=== PATIENT | male | born 1975 | race Caucasian/White ===

== ENCOUNTER 2016-03-02 12:14 | Inpatient (IN) | payer OTHER ==
[2016-03-02 12:47] VITALS: BMI 22.4
--- NOTE | 2016-03-02 12:58 | HP ---
CIWA Score - CIWA Score Nausea/Vomitin-Mild Nausea/No Vomiting Muscle Tremors: 4-Moderate,w/Arms Extend Anxiety: 4-Mod. Anxious/Guarded Agitation: 1-Slight > Activity Paroxysmal Sweats: 1-Minimal Palms Moist Orientation: 2-Disoriented Date<2 days Tacttile Disturbances: 1-Very Mild Itch/Numbness Auditory Disturbances: 2-Mild Harshness/Frighten Visual Disturbances: 2-Mild Sensitivity Headache: 2-Mild CIWA-Ar Total Score: 20 Admission ROS S - HPI Chief Complaint: I drink until I pass out, I drink and drink. I can't stop - I want to stop Allergies/Adverse Reactions: Allergies Allergy/AdvReac Type Severity Reaction Status Date / Time No Known Allergies Allergy Verified 03/02/16 12:52 History of Present Illness: 40 yo gentleman here for detox from alcohol. History of black outs, no seizures. Was in [facility] detox about a year ago, then relapsed in a few weeks. Reports oxycodone abuse occasionally, when has money, did not show in urine tox. Reports buying xanax on street when has the money, did not show in urine tox, uses cocaine when others share with him. Exam Limitations: Clinical Condition - Ebola screening Have you traveled outside of the country in the last 21 days: No Have you had contact with anyone from an Ebola affected area: No Have you been sick,other than usual withdrawal symptoms: No Do you have a fever: No - Review of Systems Constitutional: Loss of Appetite, Night Sweats, Changes in sleep EENT: reports: No Symptoms Reported Respiratory: reports: No Symptoms reported Cardiac: reports: No Symptoms Reported GI: reports: Nausea, Poor Appetite : reports: Frequency Musculoskeletal: reports: No Symptoms Reported Integumentary: reports: No Symptoms Reported Neuro: reports: Headache Endocrine: reports: No Symptoms Reported Hematology: reports: No Symptoms Reported Psychiatric: reports: Judgement Intact, Anxious Other Systems: Reviewed and Negative Patient History - Patient Medical History Hx Anemia: No Hx Asthma: No Hx Chronic Obstructive Pulmonary Disease (COPD): No Hx Cancer: No Hx Cardiac Disorders: No Hx Congestive Heart Failure: No Hx Hypertension: No Hx Hypercholesterolemia: No Hx Pacemaker: No HX Cerebrovascular Accident: No Hx Seizures: No Hx Dementia: No Hx Diabetes: No Hx Gastrointestinal Disorders: No Hx Liver Disease: No Hx Genitourinary Disorders: No Hx Sexually Transmitted Disorders: No Hx Renal Disease (ESRD): No Hx Thyroid Disease: No Hx Human Immunodeficiency Virus (HIV): No Hx Hepatitis C: No Hx Depression: No Hx Suicide Attempt: Yes (2010 - hospitalized) Hx Bipolar Disorder: No Hx Schizophrenia: Yes (hears voices - last hospitalized 2013, on meds) - Patient Surgical History Past Surgical History: No - PPD History Previous Implant?: Yes Documented Results: Positive w/o proof Implanted On Prior R Admission?: No PPD to be Administered?: No - Reproductive History Patient is a Female of Child Bearing Age (11 -55 yrs old): No (male) Patient : No - Smoking Cessation Smoking history: Current every day smoker Have you smoked in the past 12 months: Yes Aproximately how many cigarettes per day: 4 Hx Chewing Tobacco Use: No Initiated information on smoking cessation: Yes 'Breaking Loose' booklet given: 03/02/16 (given on admission to floor) - Substance & Tx. History Hx Alcohol Use: Yes Hx Substance Use: Yes Substance Use Type: Alcohol, Cocaine, Opiates, Tranquilizers Hx Substance Use Treatment: Yes (detox) - Substances Abused Alcohol Route: Oral Frequency: Daily Amount used: one case beer; 1 pint liquor Age of first use: 13 Date of Last Use: 03/01/16 Cocaine Route: Inhalation Frequency: 1-2 times per week Amount used: $100 Age of first use: 14 Date of Last Use: 03/01/16 Alprazolam (Xanax) Route: Oral Frequency: 1-3 times last 30 days Amount used: two sticks Age of first use: 30 Date of Last Use: 02/24/16 oxycodone Route: Oral Frequency: 1-2 times per week Amount used: 30mg Age of first use: 39 Date of Last Use: 02/29/16 Family Disease History - Family Disease History Family Disease History: Diabetes: Sister, Other: Father ( - surgical sepsis - etoh), Mother ( - renal) Admission Physical Exam BHS - Vital Signs Vital Signs: Vital Signs - 24 hr 03/02/16 12:43 Temperature 96.8 F L Pulse Rate 92 H Respiratory 20 Rate Blood Pressure 113/67 - Physical General Appearance: Yes: Nourished, Appropriately Dressed, Mild Distress, Anxious HEENTM: Yes: Hearing grossly Normal, Normal ENT Inspection, Normocephalic, Normal Voice, Pharynx Normal Respiratory: Yes: Normal Breath Sounds, No Respiratory Distress Neck: Yes: No masses,lesions,Nodules, Supple, Trachea in good position Breast: Yes: Breast Exam Deferred Cardiology: Yes: Regular Rhythm, Regular Rate Abdominal: Yes: Soft Genitourinary: Yes: Frequency Back: Yes: Normal Inspection Musculoskeletal: Yes: full range of Motion, Gait Steady Extremities: Yes: Normal Inspection, Normal Range of Motion Neurological: Yes: Alert, Normal Mood/Affect, Normal Response Integumentary: Yes: Normal Color, Dry, Warm, Track Pugh (no redness, no erythema) Lymphatic: Yes: Within Normal Limits - Diagnostic (1) Alcohol dependence with uncomplicated withdrawal Current Visit: Yes Status: Chronic (2) PPD positive, treated Current Visit: Yes Status: Chronic (3) Nicotine dependence Current Visit: Yes Status: Chronic Qualifiers: Nicotine product type: cigarettes Substance use status: uncomplicated Qualified Code(s): F17.210 - Nicotine dependence, cigarettes, uncomplicated (4) Cocaine abuse Current Visit: Yes Status: Chronic Comment: 'I use when my rich friends give me some' Cleared for Admission [facility] - Detox or Rehab [facility] Level of Care: Medically Managed Detox Regimen/Protocol: Librium S Breath Alcohol Content Breath Alcohol Content: 0 Urine Drug Screen - Results Drug Screen Negative: No Urine Drug Screen Results: ALLY-Cocaine
[2016-03-02] MEDS ORDERED: diphenhydrAMINE HCL 50 MG CAPSULE PO PRN (13:14)
[2016-03-02] MEDS ORDERED: ACETAMINOPHEN 325 MG TABLET (FP) PO PRN (13:14)
[2016-03-02] MEDS ORDERED: LOPERAMIDE HCL 2 MG CAPSULE PO PRN (13:14)
[2016-03-02] MEDS ORDERED: chlordiazePOXIDE HCL 25 MG CAPSULE PO ONE ×2 (13:14→15:45)
[2016-03-02] MEDS ORDERED: IBUPROFEN 400 MG TABLET (FP) PO PRN (13:14)
[2016-03-02] MEDS ORDERED: MAG HYDROX/AL HYDROX/SIMETH 30 ML UNIT-DOSE CUP PO PRN (13:14)
[2016-03-02] MEDS ORDERED: chlordiazePOXIDE HCL 25 MG CAPSULE PO PRN (13:14)
[2016-03-02] MEDS ORDERED: hydrOXYzine PAMOATE 50 MG CAPSULE (FP) PO PRN (13:14)
[2016-03-02] MEDS ORDERED: P-EPHED 60MG/TRIPROLIDI 2.5MG TABLET PO PRN (13:14)
[2016-03-02] MEDS ORDERED: MENTHOL/PHENOL 1 EACH UD MM PRN (13:14)
[2016-03-02] MEDS ORDERED: MAGNESIUM CITRATE 300 ML BOTTLE PO PRN (13:14)
[2016-03-02] MEDS ORDERED: MAGNESIUM HYDROX 2400MG/30ML ORAL SUSPENSION 30 ML CUP PO PRN (13:14)
[2016-03-02] MEDS ORDERED: guaiFENesin/D-METHORPHAN HB 10 ML UNIT-DOSE CUPS PO PRN (13:14)
--- NOTE | 2016-03-02 15:51 | CONSULT ---
[facility] Psychiatric Consult - Data Date of interview: 03/02/16 Admission source: [facility] Identifying data: First admision to [facility] for this 40 y/o male seeking detox treatment on for alcohol,cocaine and opioid dependence.Patient is single without children,domiciled,unemployed and supported on Welfare. Substance Abuse History: - Smoking Cessation. Smoking history: Current every day smoker. Have you smoked in the past 12 months: Yes. Aproximately how many cigarettes per day: 4. Hx Chewing Tobacco Use: No. Initiated information on smoking cessation: Yes. 'Breaking Loose' booklet given: 03/02/16 (given on admission to floor). - Substance & Tx. History. Hx Alcohol Use: Yes. Hx Substance Use: Yes. Substance Use Type: Alcohol, Cocaine, Opiates, Tranquilizers. Hx Substance Use Treatment: Yes (detox). - Substances Abused. Alcohol. Route: Oral. Frequency: Daily. Amount used: one case beer; 1 pint liquor. Age of first use: 13. Date of Last Use: 03/01/16. Cocaine. Route: Inhalation. Frequency: 1-2 times per week. Amount used: $100. Age of first use: 14. Date of Last Use: 03/01/16. Alprazolam (Xanax). Route: Oral. Frequency: 1-3 times last 30 days. Amount used: two sticks. Age of first use: 30. Date of Last Use: 02/24/16. oxycodone. Route: Oral. Frequency: 1-2 times per week. Amount used: 30mg. Age of first use: 39. Date of Last Use: 02/29/16. Patient confirmed. Medical History: Patient endorses good general health. Psychiatric History: Patient reports a history of psychiatric hospitalizations ( vague about details).He states that he got treated with risperdal 3 mg/day + remeron 30 mg/hs during his recent incarceration (released on 12/04/15) .Diagnosed with Schizoaffective Disorder.No affiliation with any [facility]PD care provider.Mr Hanley,however,indicates that he last took his dose of risperdal two days ago.No reported history of suicide attempts. Physical/Sexual Abuse/Trauma History: Patient denies. Additional Comment: Urine Drug Screen Results: ALLY-Cocaine.Noted. Mental Status Exam - Mental Status Exam Alert and Oriented to: Time, Place, Person Cognitive Function: Good Patient Appearance: Well Groomed Mood: Anxious, Apprehensive, Hopeful Affect: Mood Congruent Patient Behavior: Fatigued, Guarded, Appropriate, Cooperative Speech Pattern: Clear, Appropriate Voice Loudness: Normal Thought Process: Goal Oriented Thought Disorder: Not Present Hallucinations: Denies Suicidal Ideation: Denies Homicidal Ideation: Denies Insight/Judgement: Poor Sleep: Fair Appetite: Good Muscle strength/Tone: Normal Gait/Station: Normal Psychiatric Findings - Problem List ([place] 1, 2,3) (1) Alcohol dependence with uncomplicated withdrawal Current Visit: Yes Status: Acute (2) Nicotine dependence Current Visit: Yes Status: Chronic Qualifiers: Nicotine product type: cigarettes Substance use status: uncomplicated Qualified Code(s): F17.210 - Nicotine dependence, cigarettes, uncomplicated (3) Cocaine dependence Current Visit: Yes Status: Acute (4) Schizoaffective disorder Current Visit: Yes Status: Acute - Initial Treatment Plan Initial Treatment Plan: Psychoeducation.Detoxification.Risperdal 3 mg po hs.Side effects/benefits discussed with patient.Made aware of risk of sexual impotence,galactorrhea,gynecomastia,abnormal involuntary movements (dyskinesias, akinesia,akathisia) and neuroleptic malignant syndrome.Remeron 15 mg po hs ( discussed with patient as well).Patient agrees with this careplan.Observation.
[2016-03-02] MEDS: chlordiazePOXIDE HCL 25 MG CAPSULE PO SCH ×2 (18:24→23:02)
[2016-03-02 19:28] LABS: URINE APPEARANCE CLEAR; URINE BILIRUBIN NEGATIVE (NEGATIVE); URINE BLOOD NEGATIVE (NEGATIVE); URINE COLOR YELLOW; URINE GLUCOSE (UA) NEGATIVE (NEGATIVE); URINE KETONE TRACE (NEGATIVE); URINE LEUK ESTERASE NEGATIVE (NEGATIVE); URINE NITRITE NEGATIVE (NEGATIVE); URINE PROTEIN NEGATIVE (NEGATIVE); URINE UROBILINOGEN 4.0 E.U/dl E.U./dl (0.2-1.0)
[2016-03-02] MEDS: THIAMINE HCL 100 MG TABLET (FP) PO SCH (23:03)
[2016-03-02] MEDS: MIRTAZAPINE 15 MG TABLET (FP) PO SCH (23:03)
[2016-03-02] MEDS: risperiDONE 2 MG TABLET PO SCH (23:03)
[2016-03-03] MEDS: chlordiazePOXIDE HCL 25 MG CAPSULE PO SCH ×4 (05:24→23:44)
[2016-03-03] MEDS ORDERED: MIRTAZAPINE 15 MG TABLET (FP) PO SCH (10:00)
[2016-03-03] MEDS: risperiDONE 1 MG TABLET (FP) PO SCH (10:09)
[2016-03-03] MEDS: PRENATAL VITAMINS W/ FOLIC ACID TABLET (FP) PO SCH (10:09)
[2016-03-03 10:24] LABS: MCH 30.9 pg (25.7-33.7); MEAN CELL VOLUME 93.7 fl (80-96); PLATELET COUNT 235 K/MM3 (134-434); RDW 13.9 % (11.9-15.9); WHITE BLOOD COUNT 8.9 K/mm3 (4.0-10.0)
[2016-03-03 10:43] LABS: ALBUMIN 3.3 g/dl (3.4-5.0); ANION GAP 7 (8-16); CALCIUM 8.6 mg/dL (8.5-10.1); CO2 30 mmol/L (21-32); GLUCOSE,RANDOM 66 mg/dL (74-106); SGOT/AST 13 U/L (15-37); SGPT/ALT 19 U/L (12-78)
[2016-03-03 10:45] LABS: ALK PHOS 68 U/L (45-117); BILIRUBIN,TOTAL 0.3 mg/dL (0.2-1.0); TOT PROT 5.6 g/dl (6.4-8.2)
--- NOTE | 2016-03-03 11:41 | PN ---
S CIWA - CIWA Score Nausea/Vomitin Muscle Tremors: 3 Anxiety: 3 Agitation: 2 Paroxysmal Sweats: 2 Orientation: 0-Oriented Tacttile Disturbances: 1-Very Mild Itch/Numbness Auditory Disturbances: 1-Very Mild Visual Disturbances: 1-Very Mild Sensitivity Headache: 2-Mild CIWA-Ar Total Score: 18 BHS Progress Note (SOAP) Subjective: ALERT,IRRITABLE,ANXIOUS,INTERRUPTED SLEEP,TREMOR,PAIN IN THE BODY Objective: 03/03/16 11:40 Vital Signs Temperature 97.9 F 03/03/16 10:17 Pulse Rate 91 H 03/03/16 10:17 Respiratory Rate 18 03/03/16 10:17 Blood Pressure 119/76 03/03/16 10:17 O2 Sat by Pulse Oximetry (%) EKG NSR 03/03/16 11:40 Laboratory Last Values WBC 8.9 K/mm3 (4.0-10.0) 03/03/16 08:00 RBC 4.86 M/mm3 (4.00-5.60) 03/03/16 08:00 Hgb 15.0 GM/dL (11.7-16.9) 03/03/16 08:00 Hct 45.5 % (35.4-49) 03/03/16 08:00 MCV 93.7 fl (80-96) 03/03/16 08:00 MCHC 33.0 g/dl (32.0-35.9) 03/03/16 08:00 RDW 13.9 % (11.9-15.9) 03/03/16 08:00 Plt Count 235 K/MM3 (134-434) 03/03/16 08:00 MPV 9.0 fl (7.5-11.1) 03/03/16 08:00 Sodium 141 mmol/L (136-145) 03/03/16 08:00 Potassium 4.0 mmol/L (3.5-5.1) 03/03/16 08:00 Chloride 104 mmol/L (98-107) 03/03/16 08:00 Carbon Dioxide 30 mmol/L (21-32) 03/03/16 08:00 Anion Gap 7 (8-16) L 03/03/16 08:00 BUN 10 mg/dL (7-18) 03/03/16 08:00 Creatinine 1.0 mg/dL (0.7-1.3) 03/03/16 08:00 Creat Clearance w eGFR > 60 (>60) 03/03/16 08:00 Random Glucose 66 mg/dL (74-106) L 03/03/16 08:00 Calcium 8.6 mg/dL (8.5-10.1) 03/03/16 08:00 Total Bilirubin 0.3 mg/dL (0.2-1.0) 03/03/16 08:00 AST 13 U/L (15-37) L 03/03/16 08:00 ALT 19 U/L (12-78) 03/03/16 08:00 Alkaline Phosphatase 68 U/L (45-117) 03/03/16 08:00 Total Protein 5.6 g/dl (6.4-8.2) L 03/03/16 08:00 Albumin 3.3 g/dl (3.4-5.0) L 03/03/16 08:00 Urine Color Yellow 03/02/16 Unknown Urine Appearance Clear 03/02/16 Unknown Urine pH 6.0 (5.0-8.0) 03/02/16 Unknown Ur Specific [place] 1.015 (1.001-1.035) 03/02/16 Unknown Urine Protein Negative (NEGATIVE) 03/02/16 Unknown Urine Glucose (UA) Negative (NEGATIVE) 03/02/16 Unknown Urine Ketones Trace (NEGATIVE) H 03/02/16 Unknown Urine Blood Negative (NEGATIVE) 03/02/16 Unknown Urine Nitrite Negative (NEGATIVE) 03/02/16 Unknown Urine Bilirubin Negative (NEGATIVE) 03/02/16 Unknown Urine Urobilinogen 4.0 e.u/dl E.U./dl (0.2-1.0) 03/02/16 Unknown Ur Leukocyte Esterase Negative (NEGATIVE) 03/02/16 Unknown LABS PENDING Assessment: 03/03/16 11:41 WITHDRAWAL SYMPTOM Plan: CONTINUE DETOX
[2016-03-03 11:47] LABS: HIV 1 & 2 AB NEGATIVE; HIV 1 AGp24 NEGATIVE
[2016-03-03] MEDS: THIAMINE HCL 100 MG TABLET (FP) PO SCH (22:41)
[2016-03-03] MEDS: MIRTAZAPINE 15 MG TABLET (FP) PO SCH (22:41)
[2016-03-03] MEDS: risperiDONE 2 MG TABLET PO SCH (22:41)
[2016-03-04] MEDS: chlordiazePOXIDE HCL 25 MG CAPSULE PO SCH ×2 (05:37→10:15)
[2016-03-04] MEDS: risperiDONE 1 MG TABLET (FP) PO SCH (10:15)
[2016-03-04] MEDS: PRENATAL VITAMINS W/ FOLIC ACID TABLET (FP) PO SCH (10:15)
[2016-03-04] MEDS: NICOTINE POLACRILEX 2 MG GUM BUC PRN (10:43)
--- NOTE | 2016-03-04 11:48 | PN ---
S CIWA - CIWA Score Nausea/Vomitin Muscle Tremors: 2 Anxiety: 3 Agitation: 3 Paroxysmal Sweats: 3 Orientation: 0-Oriented Tacttile Disturbances: 2-Mild Itch/Numbness/Burn Auditory Disturbances: 0-None Visual Disturbances: 0-None Headache: 0-None Present CIWA-Ar Total Score: 16 BHS Progress Note (SOAP) Subjective: interrupted sleep, sweats, nausea Objective: 03/04/16 11:46 Vital Signs Temperature 98.4 F 03/04/16 10:18 Pulse Rate 113 H 03/04/16 10:18 Respiratory Rate 18 03/04/16 10:18 Blood Pressure 148/75 03/04/16 10:18 O2 Sat by Pulse Oximetry (%) Laboratory Tests 03/02/16 03/03/16 03/03/16 Unknown 08:00 08:00 WBC 8.9 RBC 4.86 Hgb 15.0 Hct 45.5 MCV 93.7 MCHC 33.0 RDW 13.9 Plt Count 235 MPV 9.0 Sodium 141 Potassium 4.0 Chloride 104 Carbon Dioxide 30 Anion Gap 7 L BUN 10 Creatinine 1.0 Creat Clearance w eGFR > 60 Random Glucose 66 L Calcium 8.6 Total Bilirubin 0.3 AST 13 L ALT 19 Alkaline Phosphatase 68 Total Protein 5.6 L Albumin 3.3 L Urine Color Yellow Urine Appearance Clear Urine pH 6.0 Ur Specific [place] 1.015 Urine Protein Negative Urine Glucose (UA) Negative Urine Ketones Trace H Urine Blood Negative Urine Nitrite Negative Urine Bilirubin Negative Urine Urobilinogen 4.0 e.u/dl Ur Leukocyte Esterase Negative RPR Titer HIV 1&2 Antibody Screen HIV P24 Antigen 03/03/16 03/03/16 09:10 09:10 WBC RBC Hgb Hct MCV MCHC RDW Plt Count MPV Sodium Potassium Chloride Carbon Dioxide Anion Gap BUN Creatinine Creat Clearance w eGFR Random Glucose Calcium Total Bilirubin AST ALT Alkaline Phosphatase Total Protein Albumin Urine Color Urine Appearance Urine pH Ur Specific [place] Urine Protein Urine Glucose (UA) Urine Ketones Urine Blood Urine Nitrite Urine Bilirubin Urine Urobilinogen Ur Leukocyte Esterase RPR Titer Nonreactive HIV 1&2 Antibody Screen Negative HIV P24 Antigen Negative pt aox3 in nad ambulatng Assessment: 03/04/16 11:47 withdrawl sx's Plan: cont. detox increase fluids ensure bid
[2016-03-04] MEDS: chlordiazePOXIDE 5 MG CAPSULE PO SCH ×2 (18:02→22:11)
[2016-03-04] MEDS: risperiDONE 2 MG TABLET PO SCH (22:11)
[2016-03-04] MEDS: THIAMINE HCL 100 MG TABLET (FP) PO SCH (22:11)
[2016-03-04] MEDS: MIRTAZAPINE 15 MG TABLET (FP) PO SCH (22:11)
[2016-03-05] MEDS: chlordiazePOXIDE 5 MG CAPSULE PO SCH ×2 (06:48→10:13)
[2016-03-05] MEDS: NICOTINE POLACRILEX 2 MG GUM BUC PRN (09:02)
[2016-03-05] MEDS: PRENATAL VITAMINS W/ FOLIC ACID TABLET (FP) PO SCH (10:12)
[2016-03-05] MEDS: risperiDONE 1 MG TABLET (FP) PO SCH (10:13)
--- NOTE | 2016-03-05 13:01 | PN ---
BHS Progress Note (SOAP) Subjective: interrupted sleep but better Objective: 03/05/16 13:00 Vital Signs Temperature 97.5 F L 03/05/16 09:33 Pulse Rate 112 H 03/05/16 09:33 Respiratory Rate 18 03/05/16 09:33 Blood Pressure 110/79 03/05/16 09:33 O2 Sat by Pulse Oximetry (%) Laboratory Tests 03/02/16 03/03/16 03/03/16 Unknown 08:00 08:00 WBC 8.9 RBC 4.86 Hgb 15.0 Hct 45.5 MCV 93.7 MCHC 33.0 RDW 13.9 Plt Count 235 MPV 9.0 Sodium 141 Potassium 4.0 Chloride 104 Carbon Dioxide 30 Anion Gap 7 L BUN 10 Creatinine 1.0 Creat Clearance w eGFR > 60 Random Glucose 66 L Calcium 8.6 Total Bilirubin 0.3 AST 13 L ALT 19 Alkaline Phosphatase 68 Total Protein 5.6 L Albumin 3.3 L Urine Color Yellow Urine Appearance Clear Urine pH 6.0 Ur Specific [place] 1.015 Urine Protein Negative Urine Glucose (UA) Negative Urine Ketones Trace H Urine Blood Negative Urine Nitrite Negative Urine Bilirubin Negative Urine Urobilinogen 4.0 e.u/dl Ur Leukocyte Esterase Negative RPR Titer HIV 1&2 Antibody Screen HIV P24 Antigen 03/03/16 03/03/16 09:10 09:10 WBC RBC Hgb Hct MCV MCHC RDW Plt Count MPV Sodium Potassium Chloride Carbon Dioxide Anion Gap BUN Creatinine Creat Clearance w eGFR Random Glucose Calcium Total Bilirubin AST ALT Alkaline Phosphatase Total Protein Albumin Urine Color Urine Appearance Urine pH Ur Specific [place] Urine Protein Urine Glucose (UA) Urine Ketones Urine Blood Urine Nitrite Urine Bilirubin Urine Urobilinogen Ur Leukocyte Esterase RPR Titer Nonreactive HIV 1&2 Antibody Screen Negative HIV P24 Antigen Negative Laboratory Tests 03/02/16 03/03/16 03/03/16 Unknown 08:00 08:00 WBC 8.9 RBC 4.86 Hgb 15.0 Hct 45.5 MCV 93.7 MCHC 33.0 RDW 13.9 Plt Count 235 MPV 9.0 Sodium 141 Potassium 4.0 Chloride 104 Carbon Dioxide 30 Anion Gap 7 L BUN 10 Creatinine 1.0 Creat Clearance w eGFR > 60 Random Glucose 66 L Calcium 8.6 Total Bilirubin 0.3 AST 13 L ALT 19 Alkaline Phosphatase 68 Total Protein 5.6 L Albumin 3.3 L Urine Color Yellow Urine Appearance Clear Urine pH 6.0 Ur Specific [place] 1.015 Urine Protein Negative Urine Glucose (UA) Negative Urine Ketones Trace H Urine Blood Negative Urine Nitrite Negative Urine Bilirubin Negative Urine Urobilinogen 4.0 e.u/dl Ur Leukocyte Esterase Negative RPR Titer HIV 1&2 Antibody Screen HIV P24 Antigen 03/03/16 03/03/16 09:10 09:10 WBC RBC Hgb Hct MCV MCHC RDW Plt Count MPV Sodium Potassium Chloride Carbon Dioxide Anion Gap BUN Creatinine Creat Clearance w eGFR Random Glucose Calcium Total Bilirubin AST ALT Alkaline Phosphatase Total Protein Albumin Urine Color Urine Appearance Urine pH Ur Specific [place] Urine Protein Urine Glucose (UA) Urine Ketones Urine Blood Urine Nitrite Urine Bilirubin Urine Urobilinogen Ur Leukocyte Esterase RPR Titer Nonreactive HIV 1&2 Antibody Screen Negative HIV P24 Antigen Negative pt aox3 in nad ambulating Assessment: 03/05/16 13:01 withdrawl sx's Plan: cont. detox increase fluids d/c in am
[2016-03-05] MEDS: chlordiazePOXIDE HCL 10 MG CAPSULE PO SCH ×2 (17:53→22:40)
[2016-03-05] MEDS: risperiDONE 2 MG TABLET PO SCH (22:39)
[2016-03-05] MEDS: THIAMINE HCL 100 MG TABLET (FP) PO SCH (22:39)
[2016-03-05] MEDS: MIRTAZAPINE 15 MG TABLET (FP) PO SCH (22:40)
[2016-03-06] MEDS: chlordiazePOXIDE HCL 10 MG CAPSULE PO SCH (05:50)
--- NOTE | 2016-03-06 08:45 | DS ---
[facility] Detox Discharge Summary Admission Date: 03/02/16 Discharge Date: 03/06/16 - History Present History: Alcohol Dependence, Cocaine Dependence - Physical Exam Results Vital Signs: Vital Signs Temperature 98.4 F 03/06/16 05:50 Pulse Rate 81 03/06/16 05:50 Respiratory Rate 20 03/06/16 05:50 Blood Pressure 113/64 03/06/16 05:50 O2 Sat by Pulse Oximetry (%) - Treatment Hospital Course: Detox Protocol Followed, Detoxed Safely, Responded well, Discharged Condition Good, Rehab Referral Accepted - Medication Discharge Medications: Ambulatory Orders Mirtazapine [Remeron -] 15 mg PO HS #30 tablet 03/02/16 Mirtazapine [Remeron -] 30 mg PO DAILY 03/02/16 Risperidone [Risperdal] 3 mg PO DAILY 03/02/16 Risperidone [Risperdal] 3 mg PO HS #30 tablet 03/02/16 - Diagnosis (1) Alcohol dependence with uncomplicated withdrawal Current Visit: Yes Status: Chronic (2) Cocaine dependence Current Visit: Yes Status: Chronic Qualifiers: Substance use status: uncomplicated Qualified Code(s): F14.20 - Cocaine dependence, uncomplicated (3) Schizoaffective disorder Current Visit: Yes Status: Chronic (4) Cocaine abuse Current Visit: Yes Status: Chronic (5) Nicotine dependence Current Visit: Yes Status: Chronic Qualifiers: Nicotine product type: cigarettes Substance use status: uncomplicated Qualified Code(s): F17.210 - Nicotine dependence, cigarettes, uncomplicated (6) PPD positive, treated Current Visit: Yes Status: Chronic - AMA Did Patient Leave Against Medical Advice: No
[2016-03-06 10:04] VITALS: BP 138/61; PULSE 74; TEMP 98.6
== END 2016-03-06 09:10 | disposition home or self-care (01) | DRG 774 ==
LOC: YASAS 12:14 → Y6N 14:21
PROVIDERS: ADMIT Internal Medicine; ATTEND Internal Medicine
PROC: HZ2ZZZZ Detoxification Services for Substance Abuse Treatment (ICD-10-PCS; principal; 2016-03-02)
DX: F10.230 Alcohol dependence with withdrawal, uncomplicated (principal); F14.10 Cocaine abuse, uncomplicated; F17.210 Nicotine dependence, cigarettes, uncomplicated; F25.9 Schizoaffective disorder, unspecified; R76.11 Nonspecific reaction to tuberculin skin test without active tuberculosis; Z86.69 Personal history of other diseases of the nervous system and sense organs; Z91.5 Personal history of self-harm
CPT/HCPCS: 36415; 71020-TC; 80053; 81003; 85027; 86593; 87389; J2794

== ENCOUNTER 2016-04-13 12:08 | Inpatient (IN) | payer OTHER ==
[2016-04-13 15:16] VITALS: BMI 22.2
--- NOTE | 2016-04-13 15:35 | HP ---
CIWA Score - CIWA Score Nausea/Vomitin Muscle Tremors: 3 Anxiety: 3 Agitation: 3 Paroxysmal Sweats: 2 Orientation: 0-Oriented Tacttile Disturbances: 2-Mild Itch/Numbness/Burn Auditory Disturbances: 2-Mild Harshness/Frighten Visual Disturbances: 2-Mild Sensitivity Headache: 2-Mild CIWA-Ar Total Score: 22 Admission ROS BHS - HPI Chief Complaint: I NEED HELP TO STOP DRINKING ALCOHOL AND COCAINE Allergies/Adverse Reactions: Allergies Allergy/AdvReac Type Severity Reaction Status Date / Time No Known Allergies Allergy Verified 04/13/16 15:09 History of Present Illness: THIS 40YEARS OLD MALE WITH ALCOHOL AND COCAINE DEPENDENCE,WITHDRAWAL SYMPTOM, LAST DETOX 03/02/16 TO 03/06/16 SYNCOPE ALCOHOL RELATED SEVERAL ADMISSIONS IN DETOX LONGEST PERIOD OF SOBRIETY 2 YEARS NICOTINE DEPENDENCE SCHIZOPHRENIA Exam Limitations: No Limitations - Ebola screening Have you traveled outside of the country in the last 21 days: No Have you had contact with anyone from an Ebola affected area: No Have you been sick,other than usual withdrawal symptoms: No Do you have a fever: No - Review of Systems Constitutional: Chills, Diaphoresis, Loss of Appetite, Malaise, Night Sweats, Changes in sleep, Weakness, Unintentional Wgt. Loss EENT: reports: Nose Congestion Respiratory: reports: No Symptoms reported Cardiac: reports: Palpitations GI: reports: Diarrhea, Nausea, Vomiting, Abdominal cramping : reports: No Symptoms Reported Musculoskeletal: reports: Back Pain, Muscle Pain Integumentary: reports: Dryness Neuro: reports: Headache, Tremors Endocrine: reports: No Symptoms Reported Hematology: reports: No Symptoms Reported Psychiatric: reports: other (SCHIZOPHRENIA) Patient History - Patient Medical History Hx Anemia: No Hx Asthma: No Hx Chronic Obstructive Pulmonary Disease (COPD): No Hx Cancer: No Hx Cardiac Disorders: No Hx Congestive Heart Failure: No Hx Hypertension: No Hx Hypercholesterolemia: No Hx Pacemaker: No HX Cerebrovascular Accident: No Hx Seizures: No Hx Dementia: No Hx Diabetes: No Hx Gastrointestinal Disorders: No Hx Liver Disease: No Hx Genitourinary Disorders: No Hx Sexually Transmitted Disorders: No Hx Renal Disease (ESRD): No Hx Thyroid Disease: No Hx Human Immunodeficiency Virus (HIV): No (LAST 12/09 ) Hx Hepatitis C: No Hx Depression: No Hx Suicide Attempt: Yes (ATTEMPT TO HANG HIMSELF) Hx Bipolar Disorder: No Hx Schizophrenia: Yes Other Medical History: NO SUICIDAL,NO HOMICIDAL - Patient Surgical History Past Surgical History: No - PPD History Previous Implant?: Yes Documented Results: Positive w/o proof Implanted On Prior [facility] Admission?: No PPD to be Administered?: No - Smoking Cessation Smoking history: Current every day smoker Have you smoked in the past 12 months: Yes Aproximately how many cigarettes per day: 10 Hx Chewing Tobacco Use: No Initiated information on smoking cessation: Yes 'Breaking Loose' booklet given: 04/13/16 - Substance & Tx. History Hx Alcohol Use: Yes Hx Substance Use: Yes Substance Use Type: Alcohol, Cocaine Hx Substance Use Treatment: Yes ([facility] 03/02/16 TO 03/06/16) - Substances Abused Alcohol Route: Oral Frequency: Daily Amount used: Whiskey(4-pints) Age of first use: 16 Date of Last Use: 04/13/16 Cocaine Route: Inhalation Frequency: Daily Amount used: $500-600 Age of first use: 20 Date of Last Use: 04/13/16 Family Disease History - Family Disease History Family Disease History: Diabetes: Sister, Other: Father ( - surgical sepsis - etoh), Mother ( - renal) Admission Physical Exam S - Vital Signs Vital Signs: Vital Signs - 24 hr 04/13/16 15:14 Temperature 98.7 F Pulse Rate 88 Respiratory 18 Rate Blood Pressure 96/58 - Physical General Appearance: Yes: Moderate Distress, Tremorous, Irritable, Sweating, Anxious HEENTM: Yes: Nasal Congestion Respiratory: Yes: Lungs Clear Neck: Yes: Within Normal Limits Breast: Yes: Within Normal Limits Cardiology: Yes: Within Normal Limits, Regular Rhythm, Regular Rate, S1, S2 Abdominal: Yes: Within Normal Limits, Normal Bowel Sounds, Non Tender, Soft Genitourinary: Yes: Within Normal Limits Back: Yes: Muscle Spasm Musculoskeletal: Yes: Back pain, Muscle Pain Extremities: Yes: Tremors Neurological: Yes: Within Normal Limits, roundhouse firer/fireman II-XII NML intact, Fully Oriented, Alert, Motor Strength 5/5 Integumentary: Yes: Dry Lymphatic: Yes: Within Normal Limits - Diagnostic (1) Alcohol dependence with uncomplicated withdrawal Current Visit: No Status: Chronic (2) Cocaine dependence Current Visit: No Status: Chronic Qualifiers: Substance use status: uncomplicated Qualified Code(s): F14.20 - Cocaine dependence, uncomplicated (3) Nicotine dependence Current Visit: No Status: Chronic Qualifiers: Nicotine product type: cigarettes Substance use status: uncomplicated Qualified Code(s): F17.210 - Nicotine dependence, cigarettes, uncomplicated (4) PPD positive, treated Current Visit: No Status: Chronic (5) Schizoaffective disorder Current Visit: No Status: Chronic (6) Weight loss Current Visit: Yes Status: Acute Cleared for Admission S - Detox or Rehab [facility] Level of Care: Medically Managed Detox Regimen/Protocol: Librium S Breath Alcohol Content Breath Alcohol Content: 0 Urine Drug Screen - Results Drug Screen Negative: Yes Urine Drug Screen Results: ALLY-Cocaine
[2016-04-13] MEDS ORDERED: hydrOXYzine PAMOATE 50 MG CAPSULE (FP) PO PRN (15:41)
[2016-04-13] MEDS ORDERED: chlordiazePOXIDE HCL 25 MG CAPSULE PO PRN (15:41)
[2016-04-13] MEDS ORDERED: LOPERAMIDE HCL 2 MG CAPSULE PO PRN (15:41)
[2016-04-13] MEDS ORDERED: MAG HYDROX/AL HYDROX/SIMETH 30 ML UNIT-DOSE CUP PO PRN (15:41)
[2016-04-13] MEDS ORDERED: chlordiazePOXIDE HCL 25 MG CAPSULE PO ONE (15:41)
[2016-04-13] MEDS ORDERED: MAGNESIUM CITRATE 300 ML BOTTLE PO PRN (15:41)
[2016-04-13] MEDS ORDERED: P-EPHED 60MG/TRIPROLIDI 2.5MG TABLET PO PRN (15:41)
[2016-04-13] MEDS ORDERED: guaiFENesin/D-METHORPHAN HB 10 ML UNIT-DOSE CUPS PO PRN (15:41)
[2016-04-13] MEDS ORDERED: MENTHOL/PHENOL 1 EACH UD MM PRN (15:41)
[2016-04-13] MEDS ORDERED: MAGNESIUM HYDROX 2400MG/30ML ORAL SUSPENSION 30 ML CUP PO PRN (15:41)
[2016-04-13] MEDS ORDERED: ACETAMINOPHEN 325 MG TABLET (FP) PO PRN (15:41)
[2016-04-13] MEDS ORDERED: IBUPROFEN 400 MG TABLET (FP) PO PRN (15:41)
[2016-04-13] MEDS: chlordiazePOXIDE HCL 25 MG CAPSULE PO SCH ×2 (18:36→22:39)
[2016-04-13] MEDS: THIAMINE HCL 100 MG TABLET (FP) PO SCH (22:39)
[2016-04-13] MEDS: diphenhydrAMINE HCL 50 MG CAPSULE PO PRN (22:39)
[2016-04-14] MEDS: chlordiazePOXIDE HCL 25 MG CAPSULE PO SCH ×4 (05:36→22:51)
[2016-04-14] MEDS ORDERED: COLLOIDAL OATMEAL 1 BAR EACH TP PRN (09:16)
[2016-04-14 10:35] LABS: MCH 30.6 pg (25.7-33.7); MCHC 32.8 g/dl (32.0-35.9); MEAN CELL VOLUME 93.2 fl (80-96); MEAN PLT VOLUME 9.1 fl (7.5-11.1); PLATELET COUNT 245 K/MM3 (134-434); RDW 14.2 % (11.9-15.9); WHITE BLOOD COUNT 6.7 K/mm3 (4.0-10.0)
[2016-04-14 10:44] LABS: ALBUMIN 3.7 g/dl (3.4-5.0); ALK PHOS 73 U/L (45-117); ANION GAP 11 (8-16); BILIRUBIN,TOTAL 0.2 mg/dL (0.2-1.0); CALCIUM 8.9 mg/dL (8.5-10.1); CO2 29 mmol/L (21-32); GLUCOSE,RANDOM 85 mg/dL (74-106); SGOT/AST 8 U/L (15-37); SGPT/ALT 18 U/L (12-78); TOT PROT 6.3 g/dl (6.4-8.2)
[2016-04-14] MEDS: PRENATAL VITAMINS W/ FOLIC ACID TABLET (FP) PO SCH (10:48)
[2016-04-14] MEDS: NICOTINE POLACRILEX 2 MG GUM BUC PRN (11:07)
--- NOTE | 2016-04-14 11:55 | PN ---
S CIWA - CIWA Score Nausea/Vomitin-No Nausea/No Vomiting Muscle Tremors: 3 Anxiety: 4-Mod. Anxious/Guarded Agitation: 4-Moderately Restless Paroxysmal Sweats: 3 Orientation: 0-Oriented Tacttile Disturbances: 0-None Auditory Disturbances: 0-None Visual Disturbances: 0-None Headache: 0-None Present CIWA-Ar Total Score: 14 BHS Progress Note (SOAP) Subjective: Anxiety,tremors,sweating,interrupted sleep,restless. Objective: 04/14/16 11:54 Vital Signs - 8 hr 04/14/16 06:32 Temperature 97.6 F Pulse Rate 65 Respiratory 18 Rate Blood Pressure 120/69 Laboratory Tests 04/14/16 04/14/16 07:45 07:45 WBC 6.7 RBC 4.94 Hgb 15.1 Hct 46.1 MCV 93.2 MCHC 32.8 RDW 14.2 Plt Count 245 MPV 9.1 Sodium 143 Potassium 3.8 Chloride 103 Carbon Dioxide 29 Anion Gap 11 BUN 13 D Creatinine 1.0 Creat Clearance w eGFR > 60 Random Glucose 85 D Calcium 8.9 Total Bilirubin 0.2 D AST 8 L D ALT 18 Alkaline Phosphatase 73 Total Protein 6.3 L Albumin 3.7 labs noted Assessment: 04/14/16 11:54 withdrawal sx. Plan: continue detox
[2016-04-14 13:08] LABS: HIV 1 & 2 AB NEGATIVE; HIV 1 AGp24 NEGATIVE
[2016-04-14] MEDS: diphenhydrAMINE HCL 50 MG CAPSULE PO PRN (22:51)
[2016-04-14] MEDS: THIAMINE HCL 100 MG TABLET (FP) PO SCH (22:51)
--- NOTE | 2016-04-15 00:48 | EKG ---
Test Reason : Blood Pressure : / mmHG Vent. Rate : 079 BPM Atrial Rate : 079 BPM P-R Int : 178 ms QRS Dur : 108 ms QT Int : 402 ms P-R-T Axes : 071 103 067 degrees QTc Int : 460 ms NORMAL SINUS RHYTHM INCOMPLETE RIGHT BUNDLE BRANCH BLOCK POSSIBLE LEFT ATRIAL ENLARGEMENT BORDERLINE ECG NO PREVIOUS ECGS AVAILABLE Confirmed by ANTONY GOLDMAN, ELIZABETH ([id number]) on 04/15/2016 12:47:51 AM Referred By: Confirmed By:ELIZABETH HARDY MD
[2016-04-15] MEDS: chlordiazePOXIDE HCL 25 MG CAPSULE PO SCH ×2 (05:12→10:31)
[2016-04-15] MEDS: NICOTINE POLACRILEX 2 MG GUM BUC PRN ×2 (05:40→11:00)
[2016-04-15 10:23] LABS: URINE APPEARANCE CLEAR; URINE BILIRUBIN NEGATIVE (NEGATIVE); URINE BLOOD NEGATIVE (NEGATIVE); URINE COLOR LTYELLOW; URINE GLUCOSE (UA) NEGATIVE (NEGATIVE); URINE KETONE NEGATIVE (NEGATIVE); URINE LEUK ESTERASE NEGATIVE (NEGATIVE); URINE NITRITE NEGATIVE (NEGATIVE); URINE PROTEIN NEGATIVE (NEGATIVE); URINE UROBILINOGEN NEGATIVE E.U./dl (0.2-1.0)
[2016-04-15] MEDS: PRENATAL VITAMINS W/ FOLIC ACID TABLET (FP) PO SCH (10:31)
--- NOTE | 2016-04-15 14:46 | CONSULT ---
[facility] Psychiatric Consult - Data Date of interview: 04/15/16 Admission source: [facility] Identifying data: Mr Hanley is a 40 years old single male, unemployed on public assistance, homeless seeking detox treatment for alcohol and cocaine Substance Abuse History: - Smoking Cessation. Smoking history: Current every day smoker. Have you smoked in the past 12 months: Yes. Aproximately how many cigarettes per day: 10. Hx Chewing Tobacco Use: No. Initiated information on smoking cessation: Yes. 'Breaking Loose' booklet given: 04/13/16. - Substance & Tx. History. Hx Alcohol Use: Yes. Hx Substance Use: Yes. Substance Use Type : Alcohol, Cocaine. Hx Substance Use Treatment: Yes ([facility] 03/02/16 TO 03/06/16) . - Substances Abused. Alcohol. Route: Oral. Frequency: Daily. Amount used: Whiskey(4-pints). Age of first use: 16. Date of Last Use: 04/13/16. Cocaine. Route: Inhalation. Frequency: Daily. Amount used: $500-600. Age of first use: 20. Date of Last Use: 04/13/16 Medical History: Significant for history of prophylactic treatment for TB Psychiatric History: Reports being diagnosed with Schizoaffective Disorder while incarcerated in 2006. Reports 2 previous psychiatric hospitalizations for suicidal attempt(by trying to hang self & by swallowing objects like spoon and soap) while incarcerated. He was prescribed Remeron 30 mg po HS and Risperdal 3 mg po HS. Claims that after his release in Nov 2015, he has been seeing a psychiatrist at [facility] and was continued on Risperdal 3 mg po HS and Remeron 30 mg po Hs. Told physician underwriter that he has not seen the psychiatrist nor taking medications for 2 months. At present, reports hearing voices not command in nature and not feeling suicidal, homicidal Mental Status Exam - Mental Status Exam Alert and Oriented to: Time, Place, Person Cognitive Function: Fair Patient Appearance: Well Groomed Mood: Hopeful, Euthymic Affect: Blunted Patient Behavior: Cooperative Speech Pattern: Clear Voice Loudness: Normal Thought Process: Intact, Goal Oriented Thought Disorder: Not Present Hallucinations: Auditory (hearing voices non command in nature ) Suicidal Ideation: Denies Homicidal Ideation: Denies Insight/Judgement: Poor Sleep: Poorly Appetite: Good Muscle strength/Tone: Normal Gait/Station: Normal Psychiatric Findings - Problem List ([place] 1, 2,3) (1) Schizoaffective disorder Current Visit: No Status: Chronic (2) Alcohol dependence with uncomplicated withdrawal Current Visit: No Status: Chronic (3) Cocaine dependence Current Visit: No Status: Chronic Qualifiers: Substance use status: uncomplicated Qualified Code(s): F14.20 - Cocaine dependence, uncomplicated (4) Nicotine dependence Current Visit: No Status: Chronic Qualifiers: Nicotine product type: cigarettes Substance use status: uncomplicated Qualified Code(s): F17.210 - Nicotine dependence, cigarettes, uncomplicated (5) PPD positive, treated Current Visit: No Status: Chronic - Initial Treatment Plan Initial Treatment Plan: Start Risperdal 1 mg po BID(first dose stat) and Remeron 30 mg po HS
[2016-04-15] MEDS ORDERED: risperiDONE 1 MG TABLET (FP) PO ONE (14:56)
--- NOTE | 2016-04-15 17:17 | PN ---
[facility] CIWA - CIWA Score Nausea/Vomitin-Mild Nausea/No Vomiting Muscle Tremors: 4-Moderate,w/Arms Extend Anxiety: 1-Mildly Anxious Agitation: 1-Slight > Activity Paroxysmal Sweats: 3 Orientation: 0-Oriented Tacttile Disturbances: 2-Mild Itch/Numbness/Burn Auditory Disturbances: 0-None Visual Disturbances: 3-Moderate Sensitivity Headache: 0-None Present CIWA-Ar Total Score: 15 S Progress Note (SOAP) Subjective: Sweating, Tremors, Diarrhea, Body Aches. Objective: PT. A & O X 3, OBSERVED AMBULATING ON UNIT. 04/15/16 17:15 Vital Signs Temperature 96.4 F L 04/15/16 13:03 Pulse Rate 88 04/15/16 13:03 Respiratory Rate 18 04/15/16 13:03 Blood Pressure 121/75 04/15/16 13:03 O2 Sat by Pulse Oximetry (%) Laboratory Last Values WBC 6.7 K/mm3 (4.0-10.0) 04/14/16 07:45 RBC 4.94 M/mm3 (4.00-5.60) 04/14/16 07:45 Hgb 15.1 GM/dL (11.7-16.9) 04/14/16 07:45 Hct 46.1 % (35.4-49) 04/14/16 07:45 MCV 93.2 fl (80-96) 04/14/16 07:45 MCHC 32.8 g/dl (32.0-35.9) 04/14/16 07:45 RDW 14.2 % (11.9-15.9) 04/14/16 07:45 Plt Count 245 K/MM3 (134-434) 04/14/16 07:45 MPV 9.1 fl (7.5-11.1) 04/14/16 07:45 Sodium 143 mmol/L (136-145) 04/14/16 07:45 Potassium 3.8 mmol/L (3.5-5.1) 04/14/16 07:45 Chloride 103 mmol/L (98-107) 04/14/16 07:45 Carbon Dioxide 29 mmol/L (21-32) 04/14/16 07:45 Anion Gap 11 (8-16) 04/14/16 07:45 BUN 13 mg/dL (7-18) D 04/14/16 07:45 Creatinine 1.0 mg/dL (0.7-1.3) 04/14/16 07:45 Creat Clearance w eGFR > 60 (>60) 04/14/16 07:45 Random Glucose 85 mg/dL (74-106) D 04/14/16 07:45 Calcium 8.9 mg/dL (8.5-10.1) 04/14/16 07:45 Total Bilirubin 0.2 mg/dL (0.2-1.0) D 04/14/16 07:45 AST 8 U/L (15-37) L D 04/14/16 07:45 ALT 18 U/L (12-78) 04/14/16 07:45 Alkaline Phosphatase 73 U/L (45-117) 04/14/16 07:45 Total Protein 6.3 g/dl (6.4-8.2) L 04/14/16 07:45 Albumin 3.7 g/dl (3.4-5.0) 04/14/16 07:45 Urine Color Ltyellow 04/15/16 07:00 Urine Appearance Clear 04/15/16 07:00 Urine pH 6.0 (5.0-8.0) 04/15/16 07:00 Ur Specific [place] 1.017 (1.001-1.035) 04/15/16 07:00 Urine Protein Negative (NEGATIVE) 04/15/16 07:00 Urine Glucose (UA) Negative (NEGATIVE) 04/15/16 07:00 Urine Ketones Negative (NEGATIVE) 04/15/16 07:00 Urine Blood Negative (NEGATIVE) 04/15/16 07:00 Urine Nitrite Negative (NEGATIVE) 04/15/16 07:00 Urine Bilirubin Negative (NEGATIVE) 04/15/16 07:00 Urine Urobilinogen Negative E.U./dl (0.2-1.0) 04/15/16 07:00 Ur Leukocyte Esterase Negative (NEGATIVE) 04/15/16 07:00 RPR Titer Nonreactive (NONREACTIVE) 04/14/16 07:45 HIV 1&2 Antibody Screen Negative 04/14/16 07:45 HIV P24 Antigen Negative 04/14/16 07:45 LABS NOTED. Assessment: 04/15/16 17:16 WITHDRAWAL SYMPTOMS. Plan: CONTINUE DETOX.
[2016-04-15] MEDS: chlordiazePOXIDE 5 MG CAPSULE PO SCH ×2 (17:43→22:41)
[2016-04-15] MEDS ORDERED: MIRTAZAPINE 15 MG TABLET (FP) ONE (21:09)
[2016-04-15] MEDS: risperiDONE 1 MG TABLET (FP) PO SCH (22:41)
[2016-04-15] MEDS: MIRTAZAPINE 30 MG TABLET (FP) PO SCH (22:41)
[2016-04-15] MEDS: THIAMINE HCL 100 MG TABLET (FP) PO SCH (22:41)
[2016-04-16] MEDS: diphenhydrAMINE HCL 50 MG CAPSULE PO PRN (01:53)
[2016-04-16] MEDS: chlordiazePOXIDE 5 MG CAPSULE PO SCH ×2 (05:38→10:29)
[2016-04-16] MEDS: NICOTINE POLACRILEX 2 MG GUM BUC PRN (09:28)
[2016-04-16] MEDS: risperiDONE 1 MG TABLET (FP) PO SCH ×2 (10:29→22:22)
[2016-04-16] MEDS: PRENATAL VITAMINS W/ FOLIC ACID TABLET (FP) PO SCH (10:29)
--- NOTE | 2016-04-16 11:17 | PN ---
BHS Progress Note (SOAP) Subjective: ANXIETY,SLIGHT IRRITABILITY,SWEATS. Objective: 04/16/16 11:16 Vital Signs Temperature 97.3 F L 04/16/16 11:10 Pulse Rate 97 H 04/16/16 11:10 Respiratory Rate 16 04/16/16 11:10 Blood Pressure 124/78 04/16/16 11:10 O2 Sat by Pulse Oximetry (%) Assessment: 04/16/16 11:16 WITHDRAWAL SX Plan: CONTINUE DETOX
[2016-04-16] MEDS: chlordiazePOXIDE HCL 10 MG CAPSULE PO SCH ×2 (17:13→22:22)
[2016-04-16] MEDS ORDERED: MIRTAZAPINE 15 MG TABLET (FP) ONE (20:24)
[2016-04-16] MEDS: THIAMINE HCL 100 MG TABLET (FP) PO SCH (22:22)
[2016-04-16] MEDS: MIRTAZAPINE 30 MG TABLET (FP) PO SCH (22:23)
[2016-04-17] MEDS: chlordiazePOXIDE HCL 10 MG CAPSULE PO SCH (04:27)
[2016-04-17 06:40] VITALS: BP 113/72; PULSE 96; TEMP 97.7
--- NOTE | 2016-04-17 11:37 | DS ---
[facility] Detox Discharge Summary Admission Date: 04/13/16 Discharge Date: 04/17/16 - History Present History: Alcohol Dependence, Cocaine Dependence Additional Comments: DETOX COMPLETED. Pertinent Past History: SCHIZOPHRENIA - Physical Exam Results Vital Signs: Vital Signs Temperature 97.7 F 04/17/16 06:39 Pulse Rate 96 H 04/17/16 06:39 Respiratory Rate 18 04/17/16 06:39 Blood Pressure 113/72 04/17/16 06:39 O2 Sat by Pulse Oximetry (%) Pertinent Admission Physical Exam Findings: WITHDRAWAL SX - Treatment Hospital Course: Detox Protocol Followed, Detoxed Safely, Responded well, Discharged Condition Good - Medication Discharge Medications: Ambulatory Orders Mirtazapine [Remeron -] 30 mg PO DAILY 03/02/16 Risperidone [Risperdal] 3 mg PO HS #30 tablet 03/02/16 - Diagnosis (1) Weight loss Status: Acute (2) Alcohol dependence with uncomplicated withdrawal Status: Acute (3) Cocaine dependence Status: Acute Qualifiers: Substance use status: uncomplicated Qualified Code(s): F14.20 - Cocaine dependence, uncomplicated (4) Nicotine dependence Status: Acute Qualifiers: Nicotine product type: cigarettes Substance use status: in withdrawal Qualified Code(s): F17.213 - Nicotine dependence, cigarettes, with withdrawal (5) Schizoaffective disorder Status: Chronic - AMA Did Patient Leave Against Medical Advice: No
== END 2016-04-17 09:19 | disposition home or self-care (01) | DRG 774 ==
LOC: YASAS 12:08 → Y3N 16:28
PROVIDERS: ADMIT Internal Medicine; ATTEND Internal Medicine
PROC: HZ2ZZZZ Detoxification Services for Substance Abuse Treatment (ICD-10-PCS; principal; 2016-04-13)
DX: F10.230 Alcohol dependence with withdrawal, uncomplicated (principal); F14.20 Cocaine dependence, uncomplicated; F17.210 Nicotine dependence, cigarettes, uncomplicated; F25.9 Schizoaffective disorder, unspecified; Z87.898 Personal history of other specified conditions; Z86.11 Personal history of tuberculosis; Z86.79 Personal history of other diseases of the circulatory system; Z91.5 Personal history of self-harm
CPT/HCPCS: 36415; 80053; 81003; 85027; 86593; 87389; 93005; 93010; J2794